=== PATIENT | female | born 1955 | race Caucasian/White ===

== ENCOUNTER → 2021-07-15 | Outpatient (CLI) | payer OTHER ==
[~2021-07-15] MED LIST: CALCIUM 600 +1 EAC8 PO; DILTIAZEM ER180 M2 PO; GLUCOSAMINE CH1 EA10 PO; IRON325 M1 PO; LIPITOR 20 MG T20 M1 PO; LISINOPRIL10 MG PO; LISINOPRIL20 MG PO; METFORMIN HCL500 MG PO; VITAMIN C500 M2 PO
== END ==
LOC: LAB 09:34
PROVIDERS: Student in an Organized Health Care Education/Training Program; ATTEND Specialist
DX: Z01.812 Encounter for preprocedural laboratory examination (principal); Z20.822 Contact with and (suspected) exposure to COVID-19

== ENCOUNTER → 2021-07-17 | Outpatient (CLI) | payer OTHER ==
[~2021-07-17] VITALS: Ht 162.6 cm; Wt 113.4 kg
--- NOTE | 2021-07-18 08:46 | P ---
[facility] [place] [address] PROCEDURE REPORT Name: JUSTIN ANDERSON Room #: REG [facility].#: [id number] Admission: 07/17/21 Attend Phys: Gino Kincaid Discharge: Date of : 53 Report #: [id number] THIS REPORT FOR: cc: Wayne Segovia,Gino Soto MD ~ cc: Wayne Segovia MD DATE OF SERVICE: 07/17/2021 PROCEDURE PERFORMED: Colonoscopy with biopsies. HISTORY OF PRESENT ILLNESS: The patient is a 66-year-old female, who presents today for colonoscopy. Last colonoscopy was in 2016, adenomatous polyps were removed at that time. She denies any symptoms currently. No family history of colon cancer. DESCRIPTION OF PROCEDURE: The risks and benefits of the procedure were explained to the patient, those risks including but not limited to bleeding, perforation and the risk of sedation. She understood these risks and gave informed consent. Sedation was given using propofol per anesthesia. Next, a digital rectal exam was initially performed, which was normal. Next, using a standard Olympus colonoscope, the scope was placed in the patient's anus and advanced under direct vision to the cecum. The overall prep was good. In the cecum, there was a 4 mm sessile polyp. This was removed with cold forceps, otherwise normal. The ileocecal valve was normal. The ascending and transverse colon were normal. In the descending colon, a 3 mm sessile polyp was noted. This was removed with cold forceps. A few diverticula were noted in the sigmoid colon. No evidence of inflammation, otherwise normal. The rectal mucosa was normal. On retroflexion, small nonbleeding internal hemorrhoids were noted. The scope was then withdrawn and the procedure terminated. The patient tolerated the procedure well. IMPRESSION: 1. Two small colonic polyps. 2. Sigmoid diverticulosis. 3. Internal hemorrhoids. 4. Otherwise, normal colonoscopy. RECOMMENDATIONS: 1. Await biopsy results. 2. Repeat colonoscopy in [address] [address] PROCEDURE REPORT Name: JUSTIN ANDERSON Room #: REG [facility] Hall#: [id number] Admission: 07/17/21 Attend Phys: Gino Kincaid Discharge: Date of : 53 Report #: [id number] Thank you for allowing me to participate in her care. <ELECTRONICALLY SIGNED> By: Gino John MD 07/18/21 0846 0921 [id number] Gino John MD /nt
--- NOTE | 2021-07-21 14:07 | PATH ---
[facility] [place] [address] [address] [place] [address] PATHOLOGY RPT PROCEDURE Name: JUSTIN ANDERSON Nasir Room #: REG [facility].#: [id number] Admission: 07/17/21 Date of : 53 Discharge: Report #: [id number] Path Case #: [id number] [facility] Accession Number: [id number] . 01 Material submitted: . PART A: cecum - CECAL POLYP PART B: colon - DESCENDING COLON POLYP. Modifiers: descending . 01 Clinical history: . COLONOSCOPY HX OF POLYPS . 02 Diagnosis: A. Polyp, cecal polyp, endoscopic biopsy: - Serrated polyp with adenomatous changes. - Negative for high-grade dysplasia. . B. Polyp, descending colon polyp, endoscopic biopsy: - Tubular adenoma. - Negative for high-grade dysplasia. ([facility]; 07/20/2021) QMS 07/20/2021 1302 Local . 02 Electronically signed: . Deysi Murrell MD, Pathologist NPI- [id number] . 01 Gross description: . A. Received in formalin labeled "Justin Anderson, cecal polyp" are multiple joseph-brown soft tissue fragments measuring in aggregate 0.9 x 0.4 x 0.3 cm. The specimen is submitted entirely in A1. . B. Received in formalin labeled "Raudel, Justin, descending colon polyp" are multiple joseph-brown soft tissue fragments measuring in aggregate 0.8 x 0.4 x 0.3 cm. The specimen is submitted entirely in B1. ([facility]; 07/18/2021) GZA/GZA 07/20/2021 1300 Local . 02 Pathologist provided ICD-10: K63.5, D12.4 . 02 CPT . 883926, [id number] Specimen Comment: A courtesy copy of this report has been sent to [phone], [phone] Specimen Comment: [id number] Specimen Comment: Report sent to , DR BEVERLY Specimen Comment: A duplicate report has been [place] [address] PATHOLOGY RPT PROCEDURE Name: JUSTIN ANDERSON Room #: REG [facility] Hall#: [id number] Admission: 07/17/21 Date of : 53 Discharge: Report #: [id number] Path Case #: [id number] updates. Performed at: 01 [facility] Emerson Giraldo [address] [place] [address] [address], [place], [place] [id number] MD Phillip Syed MD Phone: [phone] Performed at: [address] [id number] MD Deysi Murrell MD Phone: [phone]
== END | disposition home or self-care (01) ==
LOC: GI 07:54
PROVIDERS: ATTEND Specialist
DX: Z12.11 Encounter for screening for malignant neoplasm of colon (principal); Z86.010 Personal history of colon polyps; D12.4 Benign neoplasm of descending colon; K57.30 Diverticulosis of large intestine without perforation or abscess without bleeding; K64.8 Other hemorrhoids; I10 Essential (primary) hypertension; E11.9 Type 2 diabetes mellitus without complications; E78.00 Pure hypercholesterolemia, unspecified; G47.30 Sleep apnea, unspecified; M19.90 Unspecified osteoarthritis, unspecified site; Z98.890 Other specified postprocedural states; Z79.899 Other long term (current) drug therapy; Z88.0 Allergy status to penicillin
CPT/HCPCS: 62110; 62900